=== PATIENT | female | born 1985 | race Caucasian/White ===

== ENCOUNTER 2018-01-27 16:26 | Emergency (ER) | payer OTHER ==
[~2018-01-27] VITALS: Ht 157.5 cm; Wt 49.9 kg
[2018-01-27 16:39] VITALS: Ht 157.5 cm; Wt 49.9 kg
[2018-01-27 17:21] LABS: microscopic required? NO
[2018-01-27 17:50] LABS: UA SPECIFIC GRAVITY <=1.005 (1.005-1.035); urine erythrocyte NEGATIVE (NEGATIVE)
[2018-01-27 17:59] LABS: BASOPHIL % 0.3 % (0-2); PLATELET COUNT 171 x10^3mcL (130-400); RED CELL DISTRIBUTION WIDTH 12.8 % (11.5-14.5)
[2018-01-27 18:14] LABS: AMPHETAMINE QUAL UR NONE DETECTED (See below)
[2018-01-27 18:18] LABS: CALCIUM 9.2 mg/dL (8.5-10.1); CARBON DIOXIDE 24.8 mmol/L (21-32); CHLORIDE SERUM 103 mmol/L (98-107); CREATININE SERUM 1.1 mg/dL (0.6-1.0); GFR1 > 60 mL/min; GLUCOSE SERUM 136 mg/dL (74-106); POTASSIUM SERUM 3.9 mmol/L (3.5-5.1); SODIUM SERUM 141 mmol/L (136-145)
[2018-01-27 18:21] LABS: ALBUMIN 4.3 g/dL (3.4-5.0); ALKALINE PHOSPHATASE 56 U/L (46-116); ALT/SGPT 19 U/L (14-59); AST/SGOT 15 U/L (15-37); BILIRUBIN TOTAL 0.6 mg/dL (0.20-1.00); CHOLESTEROL 155 mg/dL (<200); LIPASE 99 IU/L (73-393); TOTAL PROTEIN, SERUM 7.6 g/dL (6.4-8.2); TRIGLYCERIDES 47 mg/dL (<150)
[2018-01-27 18:23] LABS: CHOLESTEROL/HDL RATIO 2.3; HDL CHOLESTEROL 68 mg/dL (40-60)
[2018-01-27 18:24] LABS: FREE T4 1.31 ng/dL (0.76-1.46); FREE THYROXINE INDEX 4.2 ug/dL (1.4-4.5); T4(THYROXINE) 11.9 ug/dL (4.7-13.3)
[2018-01-27 18:32] LABS: T3 TOTAL 1.52 ng/mL
[2018-01-27 19:00] VITALS: BP 120/72
== END 2018-01-27 19:00 | disposition home or self-care (01) ==
LOC: ED 16:26
PROVIDERS: Specialist
DX: F41.0 Panic disorder [episodic paroxysmal anxiety] (principal); R06.02 Shortness of breath; R11.2 Nausea with vomiting, unspecified; Z88.8 Allergy status to other drugs, medicaments and biological substances
CPT/HCPCS: 83880; 84439; G0480; J2060; Q0092; Q0162

== ENCOUNTER 2018-01-30 11:39 | Emergency (ER) | payer OTHER ==
[~2018-01-30] VITALS: Ht 157.5 cm; Wt 44.5 kg
[2018-01-30 11:46] VITALS: Ht 157.5 cm; Wt 44.5 kg
[2018-01-30 13:25] LABS: BASOPHIL % 0.3 % (0-2); CALCIUM 10.4 mg/dL (8.5-10.1); CHLORIDE SERUM 102 mmol/L (98-107); GFR1 > 60 mL/min; GLUCOSE SERUM 101 mg/dL (74-106); PLATELET COUNT 171 x10^3mcL (130-400); POTASSIUM SERUM 4.2 mmol/L (3.5-5.1); SODIUM SERUM 140 mmol/L (136-145)
[2018-01-30 13:29] LABS: ALBUMIN 4.3 g/dL (3.4-5.0); ALKALINE PHOSPHATASE 58 U/L (46-116); ALT/SGPT 19 U/L (14-59); AST/SGOT 18 U/L (15-37); BILIRUBIN TOTAL 1.53 mg/dL (0.20-1.00)
[2018-01-30 16:12] VITALS: BP 105/68
== END 2018-01-30 16:12 | disposition home or self-care (01) ==
LOC: ED 11:39
PROVIDERS: Emergency Medicine
DX: F41.9 Anxiety disorder, unspecified (principal); R10.9 Unspecified abdominal pain; Z88.6 Allergy status to analgesic agent
CPT/HCPCS: 36415; Q9967

== ENCOUNTER 2018-07-01 11:12 | Emergency (ER) | payer OTHER ==
[~2018-07-01] VITALS: Ht 157.5 cm; Wt 47.2 kg
[2018-07-01 11:22] VITALS: Ht 157.5 cm; Wt 47.2 kg
[2018-07-01 12:16] VITALS: BP 101/64
== END 2018-07-01 12:16 | disposition home or self-care (01) ==
LOC: ED 11:12
DX: R05 Cough (principal); F41.9 Anxiety disorder, unspecified; Z88.6 Allergy status to analgesic agent; Z98.890 Other specified postprocedural states

== ENCOUNTER 2019-07-18 08:01 | Emergency (ER) | payer OTHER ==
[~2019-07-18] VITALS: Ht 157.5 cm; Wt 44.0 kg
[2019-07-18 08:20] VITALS: Ht 157.5 cm; Wt 44.0 kg
[2019-07-18 10:54] VITALS: BP 129/80
== END 2019-07-18 10:50 | disposition home or self-care (01) ==
LOC: ED 08:01
DX: R10.9 Unspecified abdominal pain (principal); R63.0 Anorexia; R05 Cough; M79.10 Myalgia, unspecified site; R50.9 Fever, unspecified; Z98.890 Other specified postprocedural states; Z88.6 Allergy status to analgesic agent
CPT/HCPCS: J1885; Q0162